=== PATIENT | male | born 2000 | race Caucasian/White ===

== ENCOUNTER 2023-10-31 14:54 | Outpatient (AMB) | payer MEDICAID, SELFPAY ==
[2023-10-31 14:59] VITALS: BP 100/60; PULSE 60; BMI 19.3
--- NOTE | 2023-10-31 14:59 | A.OFFVIS_ITS ---
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 He does not have any known cardiac issues. He seems to get pain somewhat randomly. Nothing specifically provoking it. Nonexertional. No other cardiac symptoms. [facility] Medical History (Updated 10/31/23 @ 15:22 by Ace Gonzalez MD) Nutcracker phenomenon of renal vein Family History (Updated 10/31/23 @ 15:02 by Ami Shearer) Mother No problems noted. Father No problems noted. Paternal Grandfather Heart problem Social History (Updated 10/31/23 @ 15:02 by Ami Shearer) Alcohol intake: never Patient Tobacco Use Status: Never used Tobacco Review of Systems Const Denies chills, Denies daytime sleepiness, Denies fatigue, Denies fever(s), Denies frequent falls, Denies night sweats, Denies snoring, Denies weakness, Denies weight gain and Denies weight loss Eyes Denies loss of vision ENT Denies dizziness and Denies hearing loss Card Denies chest pain with activity, Denies syncope, Denies rapid heart rate, Denies edema, Denies claudication, Denies leg edema, Denies lightheadedness, Denies palpitations, Denies dyspnea, Denies dyspnea on exertion and Denies orthopnea Resp Denies cough, Denies excessive phlegm production, Denies dyspnea, Denies dyspnea on exertion, Denies snoring and Denies wheezing GI Denies abdominal pain, Denies hematochezia, Denies change in bowel habits, Denies change in stool character, Denies heartburn, Denies nausea and Denies vomiting Denies hematuria, Denies dysuria and Denies urinary frequency Musc Denies arthralgias, Denies muscle weakness, Denies numbness and Denies tingling Skin/Breast Denies nail changes and Denies rash Neuro Denies Abnormal speech present, Denies dizziness, Denies syncope, Denies frequent falls, Denies loss of vision, Denies memory loss, Denies numbness, Denies tingling and Denies weakness Psych Denies depression and Denies memory loss Endo Denies fatigue and Denies palpitations Aller/Immun Denies wheezing Physical Exam Vital Signs: Last Vital Signs Pulse 60 10/31/23 14:59 BP 100/60 10/31/23 14:59 BMI result Body Mass Index 19.3 Const General: comfortable and no acute distress Orientation/consciousness: patient oriented x3 HEENT Other: Unremarkable Head: Yes normal to inspection Neck Neck: Yes normal visual inspection Chest Chest palpation & inspection: normal inspection of the chest Resp Auscultation: clear to auscultation bilaterally Cardio Palpation: normal PMI Heart sounds: S1 normal heart sound present, S2 normal heart sound present, no gallops, no murmurs and no rubs GI Palpation (GI): Soft to palpation Back/Spine/Pelvis Other: unremarkable Skin General skin exam: no rashes or lesions noted Neuro General: patient oriented x3 Speech: No Abnormal speech present Extrem General: Yes normal to inspection Psych Mental Status: mental status grossly normal Office Procedures EKG Details: EKG with sinus rhythm at 60/Min; slight early repolarization type pattern; RSR'; otherwise unremarkable. [id number], Complete Assessment & Plan Assessment & Plan (1) Precordial chest pain: Code(s): R07.2 - Precordial pain Plan Atypical chest pain. Doubt any cardiac etiology. Can get an echocardiogram for structural findings but otherwise mainly reassurance. Orders: Orders CA echo transthoracic complete Today R07.2 - Precordial pain Coding Level of Care Code New Pt Level 3 (53354) Diagnoses Precordial chest pain R07.2 CPT Codes EKG - CPT: 30997-[id number], Complete ([id number])
== END 2023-10-31 15:16 | disposition home or self-care (01) ==
PROVIDERS: PCP Nurse Practitioner Primary Care; Referring Provider Nurse Practitioner Primary Care; Visit Provider Internal Medicine
DX: R07.2 Precordial pain (principal)
CPT/HCPCS: 93010; 99203

== ENCOUNTER → 2023-10-31 14:54 | Outpatient (BNVA) | payer MEDICAID, SELFPAY | PROVIDERS: PCP Nurse Practitioner Primary Care; Visit Provider Internal Medicine | DX: R07.2 Precordial pain (principal) | CPT/HCPCS: 93005; 99202 ==

== ENCOUNTER → 2023-11-29 14:58 | Outpatient (REF) | payer MEDICAID, SELFPAY ==
--- NOTE | 2023-11-29 15:01 | CA_ITS ---
Transthoracic Echocardiogram Patient (Last, First, Middle): Corky Allen, Gender: Male Date of : 2000 Age: 23 Procedure Date: 11/29/2023 Procedure Type: Transthoracic Echocardiogram Location: OP Height: 167.64 cm Weight: 55.2 kg BSA: 1.62 m2 Heart Rate: 55 bpm BP: 95 / 55 mmHg Industrial Truck Operator: GIGI Meyer MD: Ace Gonzalez MD Internet Specialist: Derick Rust MD Symptoms: R07.2 - Precordial pain Study Quality: Adequate ECG Rhythm: Bradycardia Conclusions: - Normal study Findings Left Ventricle Normal left ventricular size, thickness, and systolic function. The visually estimated ejection fraction is between 60-65%. Diastolic function is normal for age. Peak GLS is -22.2%, within normal limits Right Ventricle Normal right ventricular cavity size and systolic function. Atria Both atria are normal in size. There is no evidence of interatrial shunt. Aortic Valve Normal aortic valve structure and function. There is no aortic valve stenosis. There is no aortic valve regurgitation. Mitral Valve Normal mitral valve structure and function. There is trace mitral valve regurgitation. There is no mitral valve stenosis. Pulmonic Valve The pulmonic valve is likely normal. There is trace pulmonic valve regurgitation. Tricuspid Valve Normal tricuspid valve structure. There is trace tricuspid valve regurgitation. The right ventricular systolic pressure is normal. The right ventricular systolic pressure is 21 mmHg. Normal right atrial pressure. There is no evidence of pulmonary hypertension. Great Vessels All visible segments of the aorta are normal in size. The visualized portions of the pulmonary artery and branches are normal. Venous The inferior vena cava is normal in size and collapses greater than 50% with inspiration. Pericardium/Pleural There is no evidence of pericardial effusion. Prior Study Comparison No prior study available for comparison. Measurements 2D Linear Measurements IVSd: 0.71 0.6-0.9/0.6-1.0 cm LVIDd: 5.19 3.9-5.3/4.2-5.9 cm LVIDd Index: 3.20 2.4-3.2/2.2-3.1 cm/m2 LVIDs: 3.13 2.0-3.6 cm LVPWd: 0.81 0.7-1.1 cm LA Diam: 3.00 2.7-3.8/3.0-4.0 cm LAIDs Index: 1.85 1.5-2.3 cm/m2 LV Mass: 168.81 67-162/88-224 g LV Mass Index: 104.20 43-95/49-115 g/m2 LVOT Diam: 1.80 3.0+(-)1.3 cm 2D Systolic Function EF 4C: 59.40 >55% EF 2C: 68.70 >55% EF BiP: 64.40 >55% Mitral Valve MV Pk E: 0.81 MV PK A: 0.47 MV Decel Time: 158.00 E/A: 1.70 E'Lateral: 15.70 E'Medial: 12.70 E/E' Med: 6.30 E/E' Lat: 5.10 PHT: 46.00 MVA PHT: 4.78 Decel Tyler: 5.08 Aortic Valve AoV Pk Manuel: 1.41 AoV Mn Manuel: 0.94 AoV VTI: 0.28 AoV Pk Grad: 8.00 Aov Mn Grad: 4.00 ANDREAS Cont.VTI: 2.08 LVOT LVOT Pk Manuel: 1.27 LVOT Mn Manuel: 0.83 LVOT VTI: 0.23 LVOT Pk Grad: 6.00 LVOT Mn Grad: 3.00 LVOT Diam: 1.80 LVOT Area: 2.54 Diastolic Function MV Pk E: 0.81 MV Pk A: 0.47 E/A: 1.70 E'Medial: 12.70 E/E' Med: 6.30 E' Laterial: 15.70 E/E' Lat: 5.10 Right Ventricle TAPSE (mm): 21.30 TVS' Manuel: 12.80 Tricuspid Valve TR Pk Manuel: 1.81 TR Pk Grad: 13.00 RA Press: 8.00 RVSP: 21.00 Great Vessels Aorta Sinus of Valsalva: 2.80 2.0-3.5 cm Ao Asc: 2.70 2.1-3.4 cm Pulmonary Valve PV Pk Manuel: 1.14 Peak PV Grad: 5.00 Updated in Other Vendor System with Status of Final Derick Rust MD electronically signed on 11/30/2023 2:58:33 PM with status of Final
== END ==
LOC: HO.CARD 14:58
PROVIDERS: PCP Student in an Organized Health Care Education/Training Program; Visit Provider Internal Medicine
DX: R07.2 Precordial pain (principal)
CPT/HCPCS: 93306; 93356

== ENCOUNTER → 2023-11-29 15:01 | Outpatient (BNV) | payer MEDICAID, SELFPAY | PROVIDERS: PCP Student in an Organized Health Care Education/Training Program; Visit Provider Internal Medicine Cardiovascular Disease | DX: R00.1 Bradycardia, unspecified (principal); R07.2 Precordial pain | CPT/HCPCS: 93306; 93356 ==

== ENCOUNTER → 2024-06-16 07:38 | Outpatient (BNVA) | payer SELFPAY | PROVIDERS: PCP Student in an Organized Health Care Education/Training Program; Visit Provider Physician Assistant Medical | DX: Z02.79 Encounter for issue of other medical certificate (principal) ==

== ENCOUNTER 2024-07-17 14:53 | Outpatient (REF) | payer MEDICAID, SELFPAY | END 2024-07-17 14:54 | disposition home or self-care (01) | LOC: HO.HHCX 14:53 | PROVIDERS: PCP Student in an Organized Health Care Education/Training Program; Visit Provider Student in an Organized Health Care Education/Training Program | DX: M25.562 Pain in left knee (principal); G89.29 Other chronic pain | CPT/HCPCS: 73562 ==

== ENCOUNTER 2024-08-22 14:58 | Outpatient (REF) | payer MEDICAID, SELFPAY ==
[2024-08-22 16:10] LABS: Appearance Urine Clear; Color Urine Yellow; Glucose Urine UA Negative (Negative); Leukocyte Esterase Urine Negative (Negative); Nitrite Urine Negative (Negative); UMIC TRIGGER UA YES; Urine Blood Moderate (2+) (Negative); Urine Ketones Negative (Negative); Urine Protein Negative (Neg-Trace)
[2024-08-22 16:36] LABS: Bacteria Urine None Seen (None Seen); Hyaline Casts Urine 0-2 /LPF (0-2); Squamous Epithelial Cell Urine 0-2 /HPF (0-2); WBC Urine 0-5 /HPF (0-5)
[2024-08-22 16:57] LABS: Creatinine Urine 29.53 mg/dL; Microalbumin Urine < 5.0 mg/L
[2024-08-22 17:03] LABS: Anion Gap 10 (12-20); Blood Urea Nitrogen 21 mg/dL (9-16); Calcium 9.7 mg/dL (8.4-10.2); Carbon Dioxide 28 mmol/L (22-29); Chloride 105 mmol/L (96-108); Estimated Glomerular Filt Rate > 60; Potassium 3.7 mmol/L (3.3-5.1); Sodium 139 mmol/L (135-145)
== END 2024-08-22 14:59 | disposition home or self-care (01) ==
LOC: HO.HHCL 14:58
PROVIDERS: Visit Provider Internal Medicine Nephrology
DX: I87.1 Compression of vein (principal)
CPT/HCPCS: 36415; 80051; 81001; 82310; 82565; 82570; 84520